=== PATIENT | female | born 1955 | race Asian ===

== ENCOUNTER 2016-11-26 17:26 | Emergency (ER) | payer OTHER ==
[~2016-11-26] VITALS: Wt 42.0 kg
[~2016-11-26 17:26] MED LIST: AZIT250T94 PO; UDPVCC PO
[2016-11-26] MEDS ORDERED: SODIUM CHLORIDE 0.9% 1L BAG IV* STA (17:41)
[2016-11-26] MEDS ORDERED: ONDANSETRON 4 MG INJ IV STA (17:42)
[2016-11-26] MEDS ORDERED: LEVO25TA50 PO (17:51)
[2016-11-26] MEDS ORDERED: ALEN70TA30 PO (17:54)
[2016-11-26 17:56] LABS: ADD SCAN DIFF NO
[2016-11-26 17:59] LABS: BASOPHILS % 0.4 % (0.0-2.0); HEMOGLOBIN 14.5 g/dl (12.0-16.0); LYMPHOCYTES # 0.9 10^3/ul (0.8-2.9); LYMPHOCYTES % 18.1 % (15.0-51.0); MEAN CORPUSCULAR HEMOGLOBIN 30.3 pg (29.0-33.0); MEAN CORPUSCULAR VOLUME 92.1 fl (82.0-101.0); MEAN PLATELET VOLUME 10.4 fl (7.4-10.4); MONOCYTE # 0.2 10^3/ul (0.3-0.9); MONOCYTES % 3.2 % (0.0-11.0); NEUTROPHIL # 3.9 10^3/ul (1.6-7.5); NEUTROPHILS % 77.7 % (39.0-77.0); PLATELET COUNT 228 10^3/UL (140-415); RED BLOOD COUNT 4.78 10^6/ul (4.20-5.40); RED CELL DISTRIBUTION WIDTH 12.6 % (11.5-14.5)
[2016-11-26 18:12] LABS: INR 0.99; PARTIAL THROMBOPLASTIN TIME 26.4 Sec (25.0-35.0); PROTIME 13.1 Sec (12.2-14.2)
[2016-11-26 18:13] LABS: ALBUMIN 4.7 g/dl (3.3-4.9); CHLORIDE 103 mmol/L (97-110); SODIUM 141 mmol/L (135-144)
[2016-11-26 18:14] LABS: POTASSIUM 3.8 mmol/L (3.5-5.1)
[2016-11-26 18:16] LABS: ALBUMIN/GLOBULIN RATIO 1.14; ALKALINE PHOSPHATASE 74 IU/L (42-121); ANION GAP 18 (8-16); ASPARTATE AMINO TRANSFERASE 25 IU/L (15-46); BILIRUBIN,INDIRECT 1.1 mg/dl (0-1.1); BILIRUBIN,TOTAL 1.1 mg/dl (0.2-1.3); BLOOD UREA NITROGEN 12 mg/dl (7-20); CARBON DIOXIDE 24 mmol/L (21-31); CREATININE 0.53 mg/dl (0.44-1.00); TOTAL PROTEIN 8.8 g/dl (6.1-8.1)
[2016-11-26 18:17] LABS: ALANINE AMINOTRANSFERASE 25 IU/L (13-69); CALCIUM 9.1 mg/dl (8.4-10.2); GLUCOSE 166 mg/dl (70-220)
[2016-11-26 18:32] LABS: TROPONIN-I < 0.012 ng/ml (0.00-0.12)
--- NOTE | 2016-11-26 18:45 | RADRPT ---
PROCEDURE: XR Chest. CLINICAL INDICATION: Possible sepsis. TECHNIQUE: Portable AP view of the chest was obtained. COMPARISON: 08/20/2015 FINDINGS: The cardiomediastinal silhouette is within normal limits. The lungs are clear. There is no evidenc e for pleural effusion, pneumothorax or pulmonary vascular congestion. The osseous structures are i ntact with no evidence for acute abnormality. RPTAT:HJJR IMPRESSION: No evidence for acute intrathoracic pathology. Physician Selina Date Time Electronically viewed and signed by Alejandro Hinkle Physician on 11/26/2016 18:44 JR/
[2016-11-26] MEDS ORDERED: SOD CHLORIDE 0.9% 1,000 ML IV STA (18:56)
[2016-11-26 19:39] LABS: ADD UMIC YES; URINE BILIRUBIN (Dip) NEGATIVE (NEGATIVE); URINE BLOOD (Dip) NEGATIVE (NEGATIVE); URINE COLOR LT. YELLOW (YELLOW); URINE GLUCOSE (Dip) NEGATIVE (NEGATIVE); URINE KETONES (Dip) 40 (NEGATIVE); URINE LEUKOCYTE ESTERASE (Dip) 2+ (NEGATIVE); URINE NITRITE (Dip) NEGATIVE (NEGATIVE); URINE TOTAL PROTEIN (Dip) NEGATIVE (NEGATIVE); URINE UROBILINOGEN (Dip) 0.2 E.U./dL (0.1-1.0)
[2016-11-26 19:48] LABS: BACTERIA,URINE FEW; URINE RBCS 0-2 /HPF (0)
[2016-11-26] MEDS ORDERED: CEFTRIAXONE 1 GM/50 ML (PMX) 50 ML IVPB ONE (20:00)
--- NOTE | 2016-11-26 20:09 | RADRPT ---
PROCEDURE: CT Head without. CLINICAL INDICATION: Headache. TECHNIQUE: The study was performed utilizing a multi-slice, multidetector CT scanner. Direct spira l 1 mm axial sections were obtained through the head without the use of intravenous contrast materia l. 1 or more of the following dose reduction techniques were utilized: Automated exposure control, adjustment of the mA and/or kV according to patient's size, iterative reconstruction technique. Co gloria and sagittal reformations were obtained. The images were reviewed on a PACS workstation. RADIATION DOSE: CTDIvol: 45.0 mGyDLP: 720.2 mGy-cm COMPARISON: No prior studies are available for comparison. FINDINGS: There is no intracranial hemorrhage, extra-axial fluid collection, mass lesion, midline shift or hyd rocephalus. The ventricles, sulci and cisterns are within normal limits. The white matter is unrem arkable. The causey-white matter differentiation is preserved. The basal cisterns are patent. There is mild cerebellar tonsillar ectopia on the left with the cerebellar tonsils extending 3 mm below t he level of the foramen magnum. The midline structures are otherwise intact. The orbits, calvarium and extracranial soft tissues are normal in appearance. The visualized paranasal sinuses, mastoid a ir cells and middle ear cavities are normally aerated. IMPRESSION: 1. No acute intracranial abnormality. No intracranial hemorrhage, extra-axial fluid collection, ma ss lesion or hydrocephalous. 2. Mild left cerebellar tonsillar ectopia with the cerebellar tonsils extending 3 mm below the leve l of the foramen magnum. RPTAT: HGAS .Bryn Jordan MD, Date Time Electronically viewed and signed by .Bryn Jordan MD, MD on 11/26/2016 20:08 .S/
[2016-11-26] MEDS ORDERED: MECLIZINE 12.5 MG TAB PO ONE (20:30)
[2016-11-26 21:35] VITALS: TEMP 96.4
--- NOTE | 2016-11-26 21:46 | ERD ---
ER Documentation Chief Complaint Date/Time DATE: 11/26/16 TIME: 21:44 Chief Complaint 3 DAYS OF DIZZINESS AND VOMITING WITH SOME ABD PAIN. SEVERE WEAKNESS HPI This is a 61-year-old female presents to the emergency room for evaluation of a nausea, vomiting and dizziness. She describes her dizziness as a lightheaded sensation worse with rapid change in position. The patient came to the ER for evaluation. She denies any blurred vision associated with this, denies any fevers associated with this. She states her symptoms have been present for 3 days duration. ROS All systems reviewed and are negative except as per history of present illness. Medications Home Meds Reported Medications Alendronate Sodium* (Fosamax*) 70 Mg Tablet, 70 MG PO Q7D, #4 TAB EVERY Tuesday11/26/16 Levothyroxine Sodium* (Levoxyl*) 25 Mcg Tablet, 25 MCG PO BEFORE BREAKFAST, #30 TAB 11/26/16 Discontinued Scripts Phenylephrine Ewm-Yrwwqer-Kttkfwfdclnu* (Promethazine VC Codeine* Syrup) 120 Ml Syrup, 5 ML PO Q6 Y for COUGH for 7 Days, ML Prov:MALLORY ROACH PA-C 08/20/15 Azithromycin* (Zithromax*) 250 Mg Tablet, 250 MG PO .ZPACK DIRECTED, #6 TAB TAKE 500 MG (2 TABS) THE FIRST DAY THEN 250 MG (1 TAB) DAYS 2-5 Prov:MALLORY ROACH PA-C 08/20/15 Allergies Allergies: Coded Allergies: No Known Allergy (Unverified , 11/26/16) PMhx/Soc History of Surgery: Yes (nasal papilloma surgery 2011) Anesthesia Reaction: No Hx Neurological Disorder: No Hx Respiratory Disorders: No Hx Cardiac Disorders: No Hx Psychiatric Problems: No Hx Miscellaneous Medical Probl: Yes (thyroid problem) Hx Alcohol Use: No Hx Substance Use: No Hx Tobacco Use: No Smoking Status: Never smoker Physical Exam Vitals Vital Signs Date Time Temp Pulse Resp B/P Pulse Ox O2 Delivery O2 Flow Rate FiO2 11/26/16 21:35 96.4 11/26/16 20:46 106 21 138/78 100 Room Air 11/26/16 20:00 97 22 138/74 99 Room Air 11/26/16 19:00 84 18 135/70 99 Room Air 11/26/16 17:32 97.2 78 21 147/60 100 Physical Exam INITIAL VITAL SIGNS: Reviewed by me GENERAL: The patient is well developed and appropriate for usual state of health in no apparent distress HEENT: Dry mucous membranes, pupils equal, round, and reactive to light. EOMI. There is no scleral icterus. NECK: C-spine is soft and supple, there is no meningismus. There is no cervical lymphadenopathy. LUNGS: Clear to auscultation bilaterally. There are no rales, wheezes or rhonchi. HEART: Regular rate and rhythm, no murmurs, clicks, rubs or gallops. ABDOMEN: Soft, non-tender, non-distended. There are bowel sounds in all four quadrants. No rebound or guarding. EXTREMITIES: There is no peripheral cyanosis or edema. No focal swelling or erythema. NEUROLOGICAL: The patient moves all four extremities with 5/5 strength. Cranial nerves II - XII are intact. Normal gait. Alert and oriented SKIN: There is no apparent rash or petechiae. HEME/LYMPHATIC: There is no evidence of excessive bruising or lymphedema. PSYCHIATRIC: The patient does not appear anxious or depressed. Result Diagram: 11/26/16 1735 11/26/16 1735 Results 24 hrs Laboratory Tests Test 11/26/16 17:35 11/26/16 19:19 11/26/16 19:50 White Blood Count 5.010^3/ul Red Blood Count 4.7810^6/ul Hemoglobin 14.5g/dl Hematocrit 44.0% Mean Corpuscular Volume 92.1fl Mean Corpuscular Hemoglobin 30.3pg Mean Corpuscular Hemoglobin Concent 33.0g/dl Red Cell Distribution Width 12.6% Platelet Count 53684^3/UL Mean Platelet Volume 10.4fl Neutrophils % 77.7% Lymphocytes % 18.1% Monocytes % 3.2% Eosinophils % 0.0% Basophils % 0.4% Nucleated Red Blood Cells % 0.0/100WBC Neutrophils # 3.910^3/ul Lymphocytes # 0.910^3/ul Monocytes # 0.210^3/ul Eosinophils # 0.010^3/ul Basophils # 0.010^3/ul Nucleated Red Blood Cells # 0.010^3/ul Prothrombin Time 13.1Sec Prothrombin Time Ratio 1.0 INR International Normalized Ratio 0.99 Activated Partial Thromboplast Time 26.4Sec Sodium Level 141mmol/L Potassium Level 3.8mmol/L Chloride Level 103mmol/L Carbon Dioxide Level 24mmol/L Anion Gap 18 Blood Urea Nitrogen 12mg/dl Creatinine 0.53mg/dl Glucose Level 166mg/dl Lactic Acid Level 2.4mmol/L 2.7mmol/L Calcium Level 9.1mg/dl Total Bilirubin 1.1mg/dl Direct Bilirubin 0.00mg/dl Indirect Bilirubin 1.1mg/dl Aspartate Amino Transf (AST/SGOT) 25IU/L Alanine Aminotransferase (ALT/SGPT) 25IU/L Alkaline Phosphatase 74IU/L Troponin I < 0.012ng/ml Total Protein 8.8g/dl Albumin 4.7g/dl Globulin 4.10g/dl Albumin/Globulin Ratio 1.14 Urine Color LT. YELLOW Urine Clarity CLEAR Urine pH 7.0 Urine Specific [place] 1.020 Urine Ketones 40 Urine Nitrite NEGATIVE Urine Bilirubin NEGATIVE Urine Urobilinogen 0.2 E.U./dL Urine Leukocyte Esterase 2+ Urine Microscopic RBC 0-2/HPF Urine Microscopic WBC 25-50/HPF Urine Epithelial Cells FEW Urine Bacteria FEW Urine Hemoglobin NEGATIVE Urine Glucose NEGATIVE% Urine Total Protein NEGATIVE Current Medications Medications (Trade) Dose Ordered Sig/Yolanda Route PRN Reason Start Time Stop Time Status Last Admin Dose Admin Sodium Chloride (NS) 1,300 ml BOLUS OVER 2 HOURS STAT IV* 11/26/16 17:41 11/26/16 17:43 DC 11/26/16 17:56 Ondansetron HCl 4 mg 4 mg ONCE STAT IV 11/26/16 17:42 11/26/16 17:43 DC 11/26/16 17:56 Sodium Chloride 1,000 ml @ 1,000 mls/hr Q1H STAT IV 11/26/16 18:56 11/26/16 19:55 DC 11/26/16 19:33 Ceftriaxone Sodium (Rocephin) 50 ml @ 100 mls/hr ONCE ONCE IVPB 11/26/16 20:00 11/26/16 20:29 DC 11/26/16 20:09 Meclizine HCl (Antivert) 25 mg ONCE ONCE PO 11/26/16 20:30 11/26/16 20:31 DC 11/26/16 20:45 Dexamethasone (Decadron) 10 mg ONCE ONCE IV 11/26/16 22:00 11/26/16 22:01 DC 11/26/16 21:56 Procedures/MDM CT head without: 1. No acute intracranial abnormality. No intracranial hemorrhage, extra-axial fluid collection, mass lesion or hydrocephalous. 2. Mild left cerebellar tonsillar ectopia with the cerebellar tonsils extending 3 mm below the level of the foramen magnum. Chest X-ray 1V Interpreted by me: Soft Tissue: No acute abnormalities Bones: No acute abnormalities Mediastinum/Cardiac Silhouette/Lungs: [No acute abnormalities] This 61-year-old female presents to the emergency room for evaluation of generalized weakness, headache, dizziness, and vomiting. When I evaluated her the patient did have dry mucous membranes. She appeared to be weak and needed help with ambulation. I did obtain lab work on this patient including a urinalysis which did show a urinary tract infection. This patient does have a lactic acidosis. Did give this patient fluids, she stated she was feeling better however had a headache. CT of the head was obtained in the CT does show tonsillar ectopia with cerebellar tonsils extending 3 mm below the level of the foramen magnum. I did contact her neurosurgeon transportation modeler, Dr. Garces who states this can be related to Chiari syndrome. This patient has continued headache and vomiting and given the patient's UTI with lactic acidosis she will be placed for admission at this time on her [facility] floor. She was given greater than 30 cc/kg of IV normal saline. No blood cultures were obtained as the patient does not have a leukocytosis at this time. She will be admitted under the care of panel physicianJudy Departure Diagnosis: Primary Impression: Acute cystitis Additional Impressions: Dizziness Nausea and vomiting Condition: ARMAND Garcia DO Nov 26, 2016 21:46
[2016-11-26] MEDS ORDERED: DEXAMETHASONE 10 MG/ML 1 ML INJ IV ONE (22:00)
[2016-11-26] MEDS ORDERED: SOD CHLORIDE 0.9% 1,000 ML IV SCH (22:26)
[2016-11-26] MEDS ORDERED: ONDANSETRON 4 MG INJ IV PRN (22:30)
[2016-11-26] MEDS ORDERED: ACETAMINOPHEN 325 MG TAB PO PRN (22:30)
[2016-11-26] MEDS ORDERED: MECL-77 PO (23:31)
[2016-11-26] MEDS ORDERED: CIPR500T4 PO (23:31)
[2016-11-27 00:10] VITALS: BP 144/89; PULSE 90; RESP 18
== END 2016-11-27 00:21 | disposition home or self-care (01) ==
LOC: E/R 17:26
DX: N30.00 Acute cystitis without hematuria (principal); R11.2 Nausea with vomiting, unspecified; R10.9 Unspecified abdominal pain
CPT/HCPCS: 36415; 70450; 71010; 80053; 81001; 83605; 84484; 85025; 85610; 85730; 87040; 87086; 93005; 96365; 96375; J0696; J1100; J2405; J7030; Z7502; Z7610; 81003

== ENCOUNTER 2017-01-23 10:47 | Observation (INO) | payer OTHER ==
[~2017-01-23] VITALS: Ht 154.9 cm; Wt 46.0 kg
[~2017-01-23 10:47] MED LIST changes: +ALEN70TA30 PO; -AZIT250T94 PO; +CIPR500T4 PO; +LEVO25TA50 PO; +MECL-77 PO; -UDPVCC PO
[2017-01-23] MEDS ORDERED: SOD CHLORIDE 0.9% 1,000 ML IV STA (11:08)
[2017-01-23] MEDS ORDERED: ONDANSETRON 4 MG INJ IV STA (11:08)
[2017-01-23] MEDS ORDERED: MECLIZINE 12.5 MG TAB PO ONE ×2 (11:30→13:30)
--- NOTE | 2017-01-23 12:12 | RADRPT ---
PROCEDURE: CT Brain without contrast. CLINICAL INDICATION: Headache. TECHNIQUE: A CT of the brain was performed on a LightSpeed VCT [employer] CT scanner util[employer] Jobi ng a low dose technique with axial imaging from the skull base through the vertex without IV contras t. Multiplanar reformatted images were made. Images were reviewed on a PACS workstation. The CTDI vol is 45 mGy and the DLP is 720 mGycm. One or more of the following dose reduction techniques were used: - Automated exposure control. - Adjustment of the mA and/or kV according to patient size. Use of iterative reconstruction technique. COMPARISON: CT scan of the brain November 26, 2016. FINDINGS: There are vascular calcifications in the distal right vertebral artery. There are vascular calcifica tions in the cavernous and supracavernous portions of the internal carotid arteries. The fourth vent ricle is normal in size. The third and lateral ventricles are normal in size and configuration. The brain parenchyma is normal. The visible portions of the globes and extraocular muscles are normal. The paranasal sinuses are cl ear. The mastoid air cells and internal auditory canals are normal. The bony calvarium is intact. No intracranial mass or hemorrhage is identified. IMPRESSION: 1. Negative CT scan of the brain without contrast. 2. There are vascular calcifications in the cavernous and supracavernous portions of the internal ca rotid arteries and distal right vertebral artery.. RPTAT:AAJJ Physician Reed Date Time Electronically viewed and signed by Physician Reed on 01/23/2017 12:11 SHALONDA/
[2017-01-23] MEDS ORDERED: DIAZEPAM 5 MG/ML SYG IV ONE (13:30)
[2017-01-23] MEDS ORDERED: ASPIRIN 81 MG TAB PO ONE (14:00)
[2017-01-23 14:32] LABS: ADD SCAN DIFF NO
[2017-01-23 14:33] LABS: BASOPHILS % 0.7 % (0.0-2.0); HEMATOCRIT 42.9 % (37.0-47.0); HEMOGLOBIN 13.9 g/dl (12.0-16.0); LYMPHOCYTES # 1.3 10^3/ul (0.8-2.9); LYMPHOCYTES % 23.4 % (15.0-51.0); MEAN CORPUSCULAR HEMOGLOBIN 29.8 pg (29.0-33.0); MEAN CORPUSCULAR HGB CONC 32.4 g/dl (32.0-37.0); MEAN CORPUSCULAR VOLUME 91.9 fl (82.0-101.0); MEAN PLATELET VOLUME 10.9 fl (7.4-10.4); MONOCYTE # 0.3 10^3/ul (0.3-0.9); MONOCYTES % 4.6 % (0.0-11.0); NEUTROPHILS % 70.9 % (39.0-77.0); PLATELET COUNT 269 10^3/UL (140-415); RED BLOOD COUNT 4.67 10^6/ul (4.20-5.40); RED CELL DISTRIBUTION WIDTH 12.4 % (11.5-14.5); WHITE BLOOD COUNT 5.6 10^3/ul (4.8-10.8)
--- NOTE | 2017-01-23 14:33 | ERA ---
ER Documentation Chief Complaint Date/Time DATE: 01/23/17 TIME: 14:29 Chief Complaint Vertigo and vomiting HPI This is a 61-year-old female who says she has had a sudden onset vertigo this morning. She says she has had a few rounds of vomiting. She says that the room is spinning severely and suddenly this morning. The patient states she had vertigo a month ago and was given medication treated at an outside ER. She said she tried to take this medication but it did not work. She says she hit her head 10 days ago but did not have any symptoms until now. Patient states if she turns her head or tries to walk around she gets severe vertigo. She has a dull diffuse mild headache as well. No focal neurological complaints such as numbness weakness speech change or visual change. No blood or bile in her vomit. No diarrhea no abdominal pain chest pain. She says that she remains still with a spinning sensation is much better. ROS All systems reviewed and are negative except as per history of present illness. Medications Home Meds Reported Medications Alendronate Sodium* (Fosamax*) 70 Mg Tablet, 70 MG PO Q7D, #4 TAB EVERY Tuesday11/26/16 Levothyroxine Sodium* (Levoxyl*) 25 Mcg Tablet, 25 MCG PO BEFORE BREAKFAST, #30 TAB 11/26/16 Discontinued Scripts Meclizine Hcl* (Meclizine Hcl*) 25 Mg Tablet, 25 MG PO Q8H Y for DIZZINESS, #30 TAB Prov:ARMAND JUNIOR DO 11/26/16 Ciprofloxacin Hcl* (Ciprofloxacin Hcl*) 500 Mg Tablet, 500 MG PO BID, #14 TAB Prov:ARMAND JUNIOR DO 11/26/16 Allergies Allergies: Coded Allergies: No Known Allergy (Unverified , 01/23/17) PMhx/Soc History of Surgery: Yes (nasal papilloma surgery 2011) Anesthesia Reaction: No Hx Neurological Disorder: Yes (HYPOTHYROID) Hx Respiratory Disorders: No Hx Cardiac Disorders: No Hx Psychiatric Problems: No Hx Miscellaneous Medical Probl: Yes Hx Alcohol Use: No Hx Substance Use: No Hx Tobacco Use: No Smoking Status: Never smoker FmHx Family History: No coronary disease Physical Exam Vitals Vital Signs Date Time Temp Pulse Resp B/P Pulse Ox O2 Delivery O2 Flow Rate FiO2 01/23/17 11:17 74 16 135/87 98 Room Air 01/23/17 10:51 97.0 83 20 143/73 98 Physical Exam Const: Well-developed, well-nourished, clearly uncomfortable due to vertigo Head: Atraumatic, normocephalic Eyes: Normal Conjunctiva, PERRLA, EOMI, normal sclera, no nystagmus ENT: Normal External Ears, Nose and Mouth, moist mucus membranes. Neck: Full range of motion. No meningismus, no lymphadenopathy. Resp: Clear to auscultation bilaterally, no wheezing, rhonchi, rales Cardio: Regular rate and rhythm, no murmurs, S1 S2 present Abd: Soft, non tender x 4, non distended. Normal bowel sounds, no guarding or rebound, no pulsitile abdominal masses or bruits Skin: No petechiae or rashes, no ecchymosis , no maculopapular rash Back: No midline or flank tenderness Ext: No cyanosis, or edema, FROM x 4, normal inspection, neurovascularly intact x 4 Neur: Awake and alert, STR 5/5 x 4, sensation intact x 4, no focal findings, cerebellum intact, any movement of the bed was due to severe vertigo Psych: Normal Mood and Affect Results 24 hrs Current Medications Medications (Trade) Dose Ordered Sig/Yolanda Route PRN Reason Start Time Stop Time Status Last Admin Dose Admin Sodium Chloride (NS) 1,000 ml @ 1,000 mls/hr Q1H STAT IV 01/23/17 11:08 01/23/17 12:07 DC 01/23/17 11:29 Ondansetron HCl (Zofran Inj) 4 mg ONCE STAT IV 01/23/17 11:08 01/23/17 11:10 DC 01/23/17 11:29 Meclizine HCl (Antivert) 25 mg ONCE ONCE PO 01/23/17 11:30 01/23/17 11:31 DC 01/23/17 11:30 Meclizine HCl (Antivert) 25 mg ONCE ONCE PO 01/23/17 13:30 01/23/17 13:31 DC 01/23/17 13:57 Diazepam (Valium) 5 mg ONCE ONCE IV 01/23/17 13:30 01/23/17 13:31 DC 01/23/17 13:57 Aspirin (Aspirin) 162 mg ONCE ONCE PO 01/23/17 14:00 01/23/17 14:01 DC 01/23/17 14:18 Procedures/MDM PROCEDURE: CT Brain without contrast. CLINICAL INDICATION: Headache. TECHNIQUE: A CT of the brain was performed on a LightSpeed [employer]CT [employer] CT scanner utilizing a low dose technique with axial imaging from the skull base through the vertex without IV contrast. Multiplanar reformatted images were made. Images were reviewed on a PACS workstation. The CTDIvol is 45 mGy and the DLP is 720 mGycm. One or more of the following dose reduction techniques were used: - Automated exposure control. - Adjustment of the mA and/or kV according to patient size. Use of iterative reconstruction technique. COMPARISON: CT scan of the brain November 26, 2016. FINDINGS: There are vascular calcifications in the distal right vertebral artery. There are vascular calcifications in the cavernous and supracavernous portions of the internal carotid arteries. The fourth ventricle is normal in size. The third and lateral ventricles are normal in size and configuration. The brain parenchyma is normal. The visible portions of the globes and extraocular muscles are normal. The paranasal sinuses are clear. The mastoid air cells and internal auditory canals are normal. The bony calvarium is intact. No intracranial mass or hemorrhage is identified. IMPRESSION: 1. Negative CT scan of the brain without contrast. 2. There are vascular calcifications in the cavernous and supracavernous portions of the internal carotid arteries and distal right vertebral artery.. RPTAT:AAJJ Physician Reed Date Time Electronically viewed and signed by Physician Reed on 01/23/2017 12:11 SHALONDA/ CC: AMARIS CARPENTER DO Patient was given Antivert 25 mg p.o. 2 as well as Valium 5 mg IV The vertigo is better. We will admit the patient due to intractable vertigo. She does have some calcifications in her carotid and vertebral arteries which is somewhat concerning that a plaque could have come off causing her symptoms. I did treat her with aspirin and IV fluids. We will admit for symptomatic control and likely get an MRI Departure Diagnosis: Primary Impression: Vertigo Condition: Stable AMARIS CARPENTER DO Jan 23, 2017 14:33
[2017-01-23 14:50] LABS: INR 0.99; PROTIME 13.1 Sec (12.2-14.2)
[2017-01-23 14:51] LABS: ALBUMIN/GLOBULIN RATIO 1.38; BILIRUBIN,INDIRECT 1.4 mg/dl (0-1.1); BILIRUBIN,TOTAL 1.4 mg/dl (0.2-1.3); CALCIUM 9.3 mg/dl (8.4-10.2); CREATININE 0.57 mg/dl (0.44-1.00); PARTIAL THROMBOPLASTIN TIME 27.5 Sec (25.0-35.0); POTASSIUM 3.3 mmol/L (3.5-5.1); TOTAL PROTEIN 8.6 g/dl (6.1-8.1)
[2017-01-23] MEDS ORDERED: SOD CHLORIDE 0.9% 1,000 ML IV SCH (14:55)
[2017-01-23] MEDS ORDERED: ONDANSETRON 4 MG INJ IV PRN ×2 (15:00→16:00)
[2017-01-23] MEDS ORDERED: ACETAMINOPHEN 325 MG TAB PO PRN ×2 (15:00→16:00)
[2017-01-23] MEDS ORDERED: HYDROCODONE/APAP (5/325) TAB PO PRN (16:00)
[2017-01-23] MEDS ORDERED: NACL 0.9% 3 ML SYG IV SCH (16:00)
[2017-01-23] MEDS ORDERED: morphine 2 MG INJ IV PRN (16:00)
[2017-01-23 17:07] VITALS: PULSE 69
[2017-01-23] MEDS: SOD CHLORIDE 0.9% 1,000 ML IV SCH (17:42)
[2017-01-23 17:55] VITALS: Ht 154.9 cm; Wt 46.0 kg
[2017-01-23 20:07] VITALS: PULSE 68
[2017-01-23 20:18] VITALS: BP 118/58; RESP 20
[2017-01-23] MEDS ORDERED: MECLIZINE 25 MG TAB PO PRN (22:30)
--- NOTE | 2017-01-23 23:38 | DS ---
DATE OF ADMISSION: 01/23/2017 DATE OF DISCHARGE: 01/23/2017 PRIMARY CARE PHYSICIAN: Unknown. PERIOPERATIVE EDUCATOR: Neurology. CHIEF COMPLAINT: Dizziness. HISTORY OF PRESENT ILLNESS: This is a 61-year-old female who presents from home with nausea and diz ziness since this morning. No known aggravating, no known relieving factors. Patient had a similar issue 1 month ago. No loss of vision or focal deficits. No witnessed tongue bite, incontinence. T here is some light sensitivity, subjective fever. I believe she is still maintaining her normal act ivities during these processes. Patient has some ear pain, vertigo-like symptoms, but no loss of he aring. No neck stiffness. Again, no known aggravating factors. Her previous episode resolved with an evaluation in the emergency room, possibly with meclizine. Her vomiting has not been associated with blood. She does have a history of travel and visited [facility] a few weeks ago. She denies any mosquito bites. She did hit her head walking [place] [facility], but no loss of consciousness. PAST MEDICAL HISTORY: Hypothyroidism. The patient's history of blood pressure runs low normal. PAST SURGICAL HISTORY: None. SOCIAL HISTORY: No tobacco or alcohol. 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 FAMILY HISTORY: Mother and father had stroke, coronary artery disease, but not at an early age. REVIEW OF SYSTEMS: NEUROLOGIC: Mild headache. No loss of speech or vision, possible photosensitivity. CARDIOVASCULAR: No chest pain, no dyspnea, no edema. LUNGS: No cough, no wheezing. CONSTITUTIONAL: Subjective fever. ABDOMEN: No pain. Positive nausea, vomiting. No diarrhea. GENITOURINARY: No abdominal pain. No fever. No hematuria. MUSCULOSKELETAL: No gait dysfunction. No rashes, itching, no edema . CONSTITUTIONAL: No chills, no weight loss. Subjective fever. HEMATOLOGIC: No hematochezia, melena, hematuria. PSYCHIATRY: The patient has stable mood. anxiety, depression. ENDOCRINE: No previous diabetes or dyslipidemia. Positive hypothyroidism. PHYSICAL EXAMINATION: HEENT: Extraocular movements are intact. No pallor, no icterus, no adenopathy, no carotid bruits, n o JVD, no droop. CARDIOVASCULAR: S1, S2 regular. No murmur, rub, gallops appreciated. LUNGS: Clear to auscultation bilaterally. ABDOMEN: Bowel sounds present, nontender, nondistended. No rigidity, no rebound or guarding. EXTREMITIES: Without any edema. NEUROLOGICAL: Cranial nerves II through XII grossly intact. Motor 5/5 x4. Sensory symmetrical. R eflexes symmetrical. Babinski's none. Cerebellar function tests appear to be intact. LABORATORY DATA: CBC unremarkable. INR 0.9. CMP remarkable for sodium 145, potassium 3.3, chlorid e 107, bicarb 27, BUN and creatinine 17 and 0.7, glucose 117, bilirubin 1.4, AST and ALT of 22 and 2 5, alk phos of 82, protein of 8, albumin of 5. CAT scan of brain: No acute process. There are vasc ular calcifications in the carotids and distal vertebral body. ASSESSMENT: 1. Dizziness associated with vertigo, photophobia, subjective fever, ear pain. Possible acute lab yrinthitis, positional ? benign positional vertigo. Rule out carotid symptomatic disease. 2. Hypothyroidism. PLAN: Admit to telemetry. Consult neurology or ENT in the morning in order to evaluate carotid dise ase and stroke risk factors. Dictated By: STEFANI GARCES/JUANITA Conf#: [id number] DID#: [id number]
[2017-01-24] VITALS (16 sets, daily range): BP systolic 105–147; BP diastolic 52–87; PULSE 61–73; RESP 16–20
[2017-01-24] MEDS: SOD CHLORIDE 0.9% 1,000 ML IV SCH ×3 (03:28→21:42)
[2017-01-24] MEDS: LEVOTHYROXINE 25 MCG TAB PO SCH (06:09)
[2017-01-24 07:34] LABS: ADD SCAN DIFF NO
[2017-01-24 07:41] LABS: BASOPHILS % 0.5 % (0.0-2.0); EOSINOPHILS % 0.2 % (0.0-7.0); HEMATOCRIT 35.6 % (37.0-47.0); HEMOGLOBIN 11.4 g/dl (12.0-16.0); LYMPHOCYTES # 1.5 10^3/ul (0.8-2.9); LYMPHOCYTES % 25.4 % (15.0-51.0); MEAN CORPUSCULAR HEMOGLOBIN 29.8 pg (29.0-33.0); MEAN CORPUSCULAR VOLUME 93.2 fl (82.0-101.0); MEAN PLATELET VOLUME 10.7 fl (7.4-10.4); MONOCYTE # 0.5 10^3/ul (0.3-0.9); MONOCYTES % 7.5 % (0.0-11.0); NEUTROPHILS % 66.2 % (39.0-77.0); PLATELET COUNT 215 10^3/UL (140-415); RED BLOOD COUNT 3.82 10^6/ul (4.20-5.40); RED CELL DISTRIBUTION WIDTH 12.4 % (11.5-14.5)
[2017-01-24 08:05] LABS: ALBUMIN 3.7 g/dl (3.3-4.9); ALBUMIN/GLOBULIN RATIO 1.32; BILIRUBIN,INDIRECT 1.8 mg/dl (0-1.1); BILIRUBIN,TOTAL 1.8 mg/dl (0.2-1.3); CALCIUM 8.2 mg/dl (8.4-10.2); CHOL/HDL RATIO 3.8 RATIO; CREATININE 0.45 mg/dl (0.44-1.00); MAGNESIUM 1.9 mg/dl (1.7-2.5); PHOSPHORUS 2.1 mg/dl (2.5-4.9); POTASSIUM 3.7 mmol/L (3.5-5.1); TOTAL PROTEIN 6.5 g/dl (6.1-8.1)
[2017-01-24 08:29] LABS: THYROID STIMULATING HORMONE 0.772 MIU/L (0.465-4.680)
[2017-01-24] MEDS: ENOXAPARIN 40 MG/0.4 ML SYG SC SCH (09:00)
--- NOTE | 2017-01-24 09:01 | RADRPT ---
PROCEDURE: US Carotids. CLINICAL INDICATION: bruit , vertigo TECHNIQUE: Multiple sonographic of the carotid bifurcation region and vertebral arteries were obta ined utilizing causey scale, duplex and color-flow imaging. The images were reviewed on a PACS worksta tion. COMPARISON: No prior studies are available for comparison. FINDINGS: Evaluation of the right carotid bifurcation region reveals no significant calcific atherosclerotic d isease. Evaluation of the left carotid bifurcation region reveals no significant calcific atherosclerotic di sease. There is antegrade flow within the vertebral arteries bilaterally. RIGHT CAROTID MEASUREMENTS: Common Carotid Cbbegw37.5 (cm/sec) Internal Carotid Artery - jtuaxyqy19.2 (cm/sec) Internal Carotid Artery - mid61.4 (cm/sec) Internal Carotid Artery - txhqyn30.5 (cm/sec) Internal Carotid/Common Carotid1.05 LEFT CAROTID MEASUREMENTS: Common Carotid Zlhbsy71.2 (cm/sec) Internal Carotid Artery - wkrnvoxs64.8 (cm/sec) Internal Carotid Artery - mid55.8 (cm/sec) Internal Carotid Artery - ekwvzt77.4 (cm/sec) Internal Carotid/Common Carotid0.81 RPTAT: AA IMPRESSION: No evidence for hemodynamically significant stenosis in the bilateral internal carotid arteries - va lidated velocity measurements with angiographic measurements, velocity criteria are extrapolated fro m diameter data as defined by the Society of Radiologists in Ultrasound Consensus Conference Radiolo gy 2003; 229;340-346. This study does indirectly reference the measurement of the distal ICA diamet er as the denominator for stenosis measurement. Normal antegrade flow in the vertebral arteries bilaterally. .Thiago Martínez MD, MD Date Time Electronically viewed and signed by .Thiago Martínez MD, MD on 01/24/2017 09:01 .S/
--- NOTE | 2017-01-24 12:13 | CONS ---
Date/Time of Note Date/Time of Note DATE: 01/24/17 TIME: 12:10 Assessment/Plan Assessment/Plan Chief Complaint/Hosp Course 61 yo female admitted with nausea vomiting and vertigo. Recommendations: CTH and Duplex negative will obtain MRI Brain without contrast Standing Meclizine 25 mg q8h continue IVF hydration PT evaluation for gait balance training and exercises Problems: Consultation Date/Type/Reason Admit Date/Time Jan 23, 2017 at 14:56 Date of Consultation: Jan 24, 2017 Type of Consultation: Neurology Reason for Consultation vertigo, nausea vomiting Referring Provider: ROBERTA DARLING DIE CUTTER OPERATOR Hx of Present Illness 61 year old right handed female with no reported history presenting with complaints of worsening dizziness associated with nausea and vomiting. She denies any recent illness, admitted to similar event over 1 month ago. She denies any headaches, no visual symptoms, no speech issues, no focal weakness or difficulty with ambulation. Since admission symptoms have been improving. vertigo vomiting Social History Smoking Status: Never smoker Exam/Review of Systems Vital Signs Vitals Vital Signs Date Time Temp Pulse Resp B/P Pulse Ox O2 Delivery O2 Flow Rate FiO2 01/24/17 12:06 99.0 73 18 108/59 98 01/23/17 16:25 Room Air Intake and Output 01/23/17 01/23/17 01/24/17 15:00 23:00 07:00 Intake Total 440 ml 1270 ml Balance 440 ml 1270 ml Exam Constitutional: alert, oriented, well developed Psych: no complaints Neurological: ASSISTANCE REPRESENTATIVE II-XII intact, DTR's symmetric, nl mental status, nl speech, nl strength Results Result Diagram: 01/24/17 0630 01/24/17 0630 Results 24 hrs Laboratory Tests Test 01/23/17 14:00 01/24/17 06:30 White Blood Count 5.6 6.0 Red Blood Count 4.67 3.82 L Hemoglobin 13.9 11.4 L Hematocrit 42.9 35.6 L Mean Corpuscular Volume 91.9 93.2 Mean Corpuscular Hemoglobin 29.8 29.8 Mean Corpuscular Hemoglobin Concent 32.4 32.0 Red Cell Distribution Width 12.4 12.4 Platelet Count 269 215 # Mean Platelet Volume 10.9 H 10.7 H Neutrophils % 70.9 66.2 Lymphocytes % 23.4 25.4 Monocytes % 4.6 7.5 Eosinophils % 0.0 0.2 Basophils % 0.7 0.5 Nucleated Red Blood Cells % 0.0 0.0 Neutrophils # 4.0 4.0 Lymphocytes # 1.3 1.5 Monocytes # 0.3 0.5 Eosinophils # 0.0 0.0 Basophils # 0.0 0.0 Nucleated Red Blood Cells # 0.0 0.0 Prothrombin Time 13.1 Prothrombin Time Ratio 1.0 INR International Normalized Ratio 0.99 Activated Partial Thromboplast Time 27.5 Sodium Level 145 H 142 Potassium Level 3.3 L 3.7 Chloride Level 107 111 H Carbon Dioxide Level 24 23 Anion Gap 17 H 12 Blood Urea Nitrogen 17 12 Creatinine 0.57 0.45 Glucose Level 117 62 #L Calcium Level 9.3 8.2 L Total Bilirubin 1.4 H 1.8 H Direct Bilirubin 0.00 0.00 Indirect Bilirubin 1.4 H 1.8 H Aspartate Amino Transf (AST/SGOT) 22 22 Alanine Aminotransferase (ALT/SGPT) 25 31 Alkaline Phosphatase 82 54 Total Protein 8.6 H 6.5 # Albumin 5.0 H 3.7 # Globulin 3.60 H 2.80 Albumin/Globulin Ratio 1.38 1.32 Hemoglobin A1c 5.4 Phosphorus Level 2.1 L Magnesium Level 1.9 Triglycerides Level 69 Cholesterol Level 179 LDL Cholesterol, Calculated 119 HDL Cholesterol 46 Cholesterol/HDL Ratio 3.8 Vitamin B12 Level 654 Thyroid Stimulating Hormone (TSH) 0.772 Medications Medications Current Medications Sodium Chloride (NS) 1,000 ml @ 100 mls/hr Q10H IV Last administered on 12:03; Admin Dose 100 MLS/HR; Start 01/23/17 at 15:42 Ondansetron HCl (Zofran Inj) 4 mg Q6H PRN IV NAUSEA AND/OR VOMITING Last administered on 01/23/17 18:11; Admin Dose 4 MG; Start 01/23/17 at 16:00 Acetaminophen (Tylenol Tab) 650 mg Q6H PRN PO PAIN LEVEL 1-3 OR FEVER; Start at 16:00 Acetaminophen/ Hydrocodone Bitart ([place] (5/325)) 1 tab Q6H PRN PO MODERATE PAIN LEVEL 4-6; Start 01/23/17 at 16:00 Morphine Sulfate (morphine) 2 mg Q4H PRN IV SEVERE PAIN LEVEL 7-10 Last administered on 01/23/17 16:10; Admin Dose 2 MG; Start 01/23/17 at 16:00 Enoxaparin Sodium (Lovenox) 40 mg DAILY SC Last administered on 01/24/17 09:00 ; Admin Dose 40 MG; Start 01/24/17 at 09:00 Meclizine HCl (Antivert) 25 mg TID PRN PO VOMITTING Last administered on 00:29; Admin Dose 25 MG; Start 01/23/17 at 22:30 ARLIN MARTINEZ MD Jan 24, 2017 12:13
--- NOTE | 2017-01-24 12:37 | PN ---
DATE: 01/24/2017 01/24/2007 TIME OF EVALUATION: 11:30 a.m. SUBJECTIVE DATA: Complains of dizziness. Denies any headache. Denies any nausea or vomiting. OBJECTIVE DATA: VITAL SIGNS: Temperature 97.2, pulse is 70, respiratory rate 18, blood pressure 105/58, oxygen saturation 98% on room air. GENERAL: Thin female lying in bed in no apparent distress. HEENT: Head normocephalic and atraumatic. Eyes: Anicteric sclerae. Conjunctivae clear. ENT: Nasal septum is midline. Oral mucosa is dry. NECK: Supple. No JVD noticed. RESPIRATORY: Bilaterally clear to auscultation. No adventitious breath sounds heard. No use of accessory muscles of respiration. CARDIAC: Regular rate and rhythm. S1, S2 heard. ABDOMEN: Soft, nontender and nondistended. Bowel sounds positive in all 4 quadrants. GENITOURINARY: Deferred. EXTREMITIES: No cyanosis, no clubbing, no edema. Peripheral pulses palpable. NEUROLOGIC: The patient is awake, alert and oriented. Cranial nerves are grossly intact. LABORATORY AND DIAGNOSTIC DATA: WBC 6.0, hemoglobin 11.4, hematocrit 35.6, platelet count 215. Sodium 142, potassium 3.7, chloride 111, carbon dioxide 23 , anion gap 12, BUN 12, creatinine 0.45, glucose 62, calcium 8.2, phosphorus 2.1 , magnesium 1.9, total bilirubin 1.8, indirect bilirubin 1.8, AST 22, ALT 31, alkaline phosphatase 54. ASSESSMENT AND PLAN: 1. Autonomic instability. Etiology unclear, most probably benign paroxysmal positional vertigo. Brain CT scan negative for any acute changes. Carotid Doppler study negative. The patient to be evaluated by neurology. 2. Hypothyroidism. Continue Synthroid. 3. Fluid, electrolytes and nutrition. Regular diet as tolerated. 4. DVT prophylaxis with subcutaneous Lovenox. 5. Gastrointestinal prophylaxis, not indicated. PLAN: 1. Continue telemetry monitoring. 2. Await neurology evaluation. 3. Physical therapy evaluation. Case discussed with Dr. Payne. ROBERTA PAYNE MD, AM/JUANITA Conf#: [id number] DID#: [id number] MTDD
[2017-01-24] MEDS: MECLIZINE 25 MG TAB PO SCH ×2 (13:17→20:40)
--- NOTE | 2017-01-24 14:04 | RADRPT ---
Vent Rate: 73 bpm RR Interval: 0 msec IN Interval: 160 msec QRS Duration: 80 msec QT Interval: 394 msec QTC Interval: 434 msec P-R-T [place]: 65 - 86 - 66 degrees Normal sinus rhythm Normal ECG Electronically Signed By: Luis Medina [id number]
[2017-01-25] VITALS (9 sets, daily range): BP systolic 129–133; BP diastolic 63–73; PULSE 60–73; RESP 16–18
--- NOTE | 2017-01-25 00:37 | RADRPT ---
PROCEDURE: MR Brain without contrast. CLINICAL INDICATION: Vertigo. CVA. TECHNIQUE: An MRI of the brain was performed on a 1.5 marc scanner utilizing the following sequen nnamdi: Sagittal T1 weighted, axial T2 weighted, axial FLAIR, coronal GRE, and axial diffusion weighted with ADC mapping. COMPARISON: None FINDINGS: No evidence of restricted diffusion to suggest acute or early subacute ischemic infarction. There i s no evidence of intracranial hemorrhage, mass effect, or midline shift. No extra-axial fluid collec tions are seen. No hypointense signal abnormalities are seen on the GRE images to suggest the presence of blood degr adation products. Scattered nonspecific T2 signal hyperintensity foci in the subcortical and periven tricular white matter compatible with sequelae of minimal chronic microvascular ischemic injury. The brain parenchyma is otherwise normal in signal intensity and morphology with preservation of gra y white differentiation . Age appropriate size of the ventricles and subarachnoid spaces. Mucosal t hickening and inflammatory change in the right nasal cavity. The posterior fossa contents, brainstem, seventh - eighth cranial nerve complexes, pituitary axis, o rbits, paranasal sinuses, and mastoid air cells are unremarkable. Normal flow voids are visible in the proximal intracranial arteries and dural sinuses, indicating pa tency. IMPRESSION: 1. No acute or early subacute ischemic infarction. No intracranial hemorrhage. 2. Minimal microvascular ischemic change and age appropriate volume loss. 3. No other acute intracranial abnormality. RPTAT:AAJJ Physician Rosanne Date Time Electronically viewed and signed by Physician Rosanne on 01/25/2017 00:36 [place]/
[2017-01-25] MEDS: SOD CHLORIDE 0.9% 1,000 ML IV SCH ×2 (03:22→13:30)
[2017-01-25] MEDS: LEVOTHYROXINE 25 MCG TAB PO SCH (06:03)
[2017-01-25 08:03] LABS: ADD SCAN DIFF NO
[2017-01-25 08:13] LABS: BASOPHILS % 0.7 % (0.0-2.0); HEMATOCRIT 34.3 % (37.0-47.0); HEMOGLOBIN 11.6 g/dl (12.0-16.0); LYMPHOCYTES # 1.7 10^3/ul (0.8-2.9); LYMPHOCYTES % 41.1 % (15.0-51.0); MEAN CORPUSCULAR HEMOGLOBIN 30.5 pg (29.0-33.0); MEAN CORPUSCULAR HGB CONC 33.8 g/dl (32.0-37.0); MEAN CORPUSCULAR VOLUME 90.3 fl (82.0-101.0); MEAN PLATELET VOLUME 10.7 fl (7.4-10.4); MONOCYTE # 0.5 10^3/ul (0.3-0.9); MONOCYTES % 10.9 % (0.0-11.0); NEUTROPHILS % 47.1 % (39.0-77.0); PLATELET COUNT 215 10^3/UL (140-415); RED CELL DISTRIBUTION WIDTH 12.1 % (11.5-14.5); WHITE BLOOD COUNT 4.2 10^3/ul (4.8-10.8)
[2017-01-25 08:53] LABS: MAGNESIUM 1.8 mg/dl (1.7-2.5); PHOSPHORUS 2.3 mg/dl (2.5-4.9)
[2017-01-25 08:56] LABS: CALCIUM 8.4 mg/dl (8.4-10.2); CREATININE 0.47 mg/dl (0.44-1.00); POTASSIUM 3.5 mmol/L (3.5-5.1)
[2017-01-25] MEDS: MECLIZINE 25 MG TAB PO SCH ×2 (09:02→12:49)
[2017-01-25] MEDS: ENOXAPARIN 40 MG/0.4 ML SYG SC SCH (10:09)
--- NOTE | 2017-01-25 12:01 | CONS ---
Date/Time of Note Date/Time of Note DATE: 01/25/17 TIME: 12:00 Consult Date/Type/Reason Admit Date/Time Jan 23, 2017 at 14:56 Initial Consult Date 01/24/17 Type of Consultation: Neurology Reason for Consultation vertigo Ordering Provider: ROBERTA DARLING NP Subjective vertigo improved with standing meclizine MRI negative for CVA Objective Vital Signs Date Time Temp Pulse Resp B/P Pulse Ox O2 Delivery O2 Flow Rate FiO2 01/25/17 11:58 98.4 73 18 130/63 98 01/23/17 16:25 Room Air Intake and Output 01/24/17 01/24/17 01/25/17 15:00 23:00 07:00 Intake Total 1200 ml 920 ml Balance 1200 ml 920 ml Exam Constitutional: alert, oriented, well developed Psych: no complaints Neurological: 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 II-XII intact, DTR's symmetric, nl mental status, nl speech, nl strength Results/Medications Result Diagram: 01/25/17 0630 01/25/17 0630 Results 24 hrs Laboratory Tests Test 01/25/17 06:30 White Blood Count 4.2 #L Red Blood Count 3.80 L Hemoglobin 11.6 L Hematocrit 34.3 L Mean Corpuscular Volume 90.3 Mean Corpuscular Hemoglobin 30.5 Mean Corpuscular Hemoglobin Concent 33.8 Red Cell Distribution Width 12.1 Platelet Count 215 Mean Platelet Volume 10.7 H Neutrophils % 47.1 Lymphocytes % 41.1 Monocytes % 10.9 Eosinophils % 0.0 Basophils % 0.7 Nucleated Red Blood Cells % 0.0 Neutrophils # 2.0 Lymphocytes # 1.7 Monocytes # 0.5 Eosinophils # 0.0 Basophils # 0.0 Nucleated Red Blood Cells # 0.0 Sodium Level 143 Potassium Level 3.5 Chloride Level 110 Carbon Dioxide Level 27 Anion Gap 10 Blood Urea Nitrogen 5 L Creatinine 0.47 Glucose Level 82 Calcium Level 8.4 Phosphorus Level 2.3 L Magnesium Level 1.8 Medications Current Medications Sodium Chloride (NS) 1,000 ml @ 100 mls/hr Q10H IV Last administered on t 03:22; Admin Dose 100 MLS/HR; Start 01/23/17 at 15:42 Ondansetron HCl (Zofran Inj) 4 mg Q6H PRN IV NAUSEA AND/OR VOMITING Last administered on 01/23/17 18:11; Admin Dose 4 MG; Start 01/23/17 at 16:00 Acetaminophen (Tylenol Tab) 650 mg Q6H PRN PO PAIN LEVEL 1-3 OR FEVER; Start at 16:00 Acetaminophen/ Hydrocodone Bitart ([place] (5/325)) 1 tab Q6H PRN PO MODERATE PAIN LEVEL 4-6; Start 01/23/17 at 16:00 Morphine Sulfate (morphine) 2 mg Q4H PRN IV SEVERE PAIN LEVEL 7-10 Last administered on 01/23/17 16:10; Admin Dose 2 MG; Start 01/23/17 at 16:00 Enoxaparin Sodium (Lovenox) 40 mg DAILY SC Last administered on 01/25/17 10:09 ; Admin Dose 40 MG; Start 01/24/17 at 09:00 Meclizine HCl (Antivert) 25 mg TID PO Last administered on 01/25/17 09:02; Admin Dose 25 MG; Start 01/24/17 at 13:00 Assessment/Plan Chief Complaint/Hosp Course 61 yo female admitted with nausea vomiting and vertigo. MRI negative for CVA. Recommendations: continue meclizine 25 mg q8h as needed continue IVF hydration DC planning outpatient neurology follow up Problems: ARLIN MARTINEZ MD Jan 25, 2017 12:01
--- NOTE | 2017-01-25 14:33 | PDOCDIS ---
Discharge Instructions DIAGNOSIS Discharge Diagnosis: Benign positional vertigo. CONDITION Patient Condition: Stable HOME CARE INSTRUCTIONS: Diet Instructions: RegularSpecial Diet: regular OTHER ORDERS: Other Orders: 1. Resume home medications. Take meclizine as instructed. 2. Resume activities as tolerated. 3. Follow-up with outpatient neurology. 4. Regular diet. ROBERTA DARLING NP Jan 25, 2017 14:33
[2017-01-25] MEDS ORDERED: MECL-77 PO (14:34)
--- NOTE | 2017-01-25 16:32 | DS ---
DATE OF ADMISSION: 01/23/2017 DATE OF DISCHARGE: 01/25/2017 FINAL DIAGNOSIS: 1. Vertigo, most probably benign paroxysmal positional vertigo. Status post evaluation by neurology. 2. Hypothyroidism. 3. Osteoporosis. CONSULTATIONS: Dr. Tennille Cowan, Neurology. HOSPITAL COURSE: This is a 61-year-old female who presented to the emergency room with chief complaint of nausea and dizziness. The patient also verbalized some light sensitivity and subjective fevers. Provided the patient's history of present illness, a clinical decision was made to admit the patient to inpatient setting to have her further evaluated. The patient was admitted to inpatient telemetry floor. The patient was started on p.r.n. labyrinthine sedatives. The patient was evaluated by neurology. The patient underwent a brain MRI that was negative for any acute intracranial findings. The patient also underwent a carotid Doppler study that was negative for any hemodynamically significant stenosis of the bilateral internal carotid arteries. The patient was started on routine labyrinthine sedatives as per neurology, with improvement in the patient's symptoms. The patient has underlying hypothyroidism. The patient was maintained on Synthroid for the same. The patient's TSH was within normal limits. The patient's symptoms improved significantly. The patient was cleared by neurology to be discharged home. The patient has been able to get up and walk without any significant vertigo. DISPOSITION AND PLAN: The patient will be discharged home today. The patient was instructed to resume home medications and take meclizine as instructed. She was instructed to resume activities as tolerated. She was instructed to follow up with outpatient neurologist. Case management order was put in for insurance approval for outpatient neurology followup. The patient was instructed to follow a regular diet. The patient verbalized understanding of her discharge instructions. CONDITION AT DISCHARGE: Stable. DISCHARGE MEDICATIONS: 1. Meclizine 25 mg p.o. t.i.d. 2. Synthroid 25 mg p.o. before breakfast. 3. Fosamax 70 mg p.o. every 7 days. PERTINENT LABORATORY AND DIAGNOSTIC DATA: 1. Brain CT scan. Negative CT scan of the brain without contrast. There are vascular calcifications in the cavernous and supracavernous portions of the internal carotid arteries and distal right vertebral artery. 2. Carotid Doppler study. No evidence for hemodynamically significant stenosis in the bilateral internal carotid arteries. 3. Brain MRI. No acute or early subacute ischemic infarction. No intracranial hemorrhage. Minimal microvascular ischemic change and age appropriate volume loss. No other acute intracranial abnormality. 4. Latest CBC: WBC 4.0, hemoglobin 11.6, hematocrit 34.3, platelet count 215. 5. Latest BMP: Sodium 143, potassium 3.5, chloride 100, carbon dioxide 20, anion gap 10, BUN 5, creatinine 0.47, glucose 82, calcium 8.4, phosphorus 2.3, magnesium 1.8. 6. Hemoglobin A1c 5.4. 7. Fasting lipid panel: Triglycerides 69, total cholesterol 179, LDL 119. At this time, we would like to thank Dr. Cowan for seeing the patient and providing clinical recommendation. The case and management of this patient was fully discussed with Dr. Payne. Approximately 35 minutes was spent on coordinating the discharge on this patient. ROBERTA PAYNE MD, AM/JUANITA Conf#: [id number] DID#: [id number] MTDSushant
== END 2017-01-25 16:40 | disposition home or self-care (01) ==
LOC: E/R 10:47 → MS4 14:56
PROVIDERS: ADMIT Hospitalist; ATTEND Hospitalist
DX: R42 Dizziness and giddiness (principal); E03.9 Hypothyroidism, unspecified; M81.0 Age-related osteoporosis without current pathological fracture
CPT/HCPCS: 36415; 70450; 70551; 80048; 80053; 80061; 82607; 83036; 83735; 84100; 84443; 85025; 85610; 85730; 93005; 93880; 96360; 96361; 96372; 96374; 96375; J1650; J2270; J2405; J3360; J7030; Z7500; Z7502; Z7610; G0378

== ENCOUNTER 2018-10-27 16:30 | Emergency (ER) | payer OTHER ==
[~2018-10-27] VITALS: Wt 44.5 kg
[~2018-10-27 16:30] MED LIST changes: -ALEN70TA30 PO; +ALEN70TA5 PO; -CIPR500T4 PO
--- NOTE | 2018-10-27 18:11 | ERD ---
ER Documentation Chief Complaint Chief Complaint COUGH, BODYACHES, GEN WEAKNESS, N/V X5 DAYS HPI 63-year-old woman complains of body aches, cough, congestion, sore throat, nausea times 5-6 days. She denies recent travel or antibiotic use, no chest pain, no blood per rectum or melena, no headache or blurry vision, no neck stiffness. ROS All systems reviewed and are negative except as per history of present illness. Medications Home Meds Active Scripts Ibuprofen* (Motrin*) 600 Mg Tab, 600 MG PO Q8 PRN for PAIN AND/OR INFLAMMATION, #30 TAB Prov:MELODIE BROWN MD 10/27/18 Azithromycin* (Zithromax*) 250 Mg Tablet, 250 MG PO .ZPACK DIRECTED, #6 TAB TAKE 500 MG (2 TABS) THE FIRST DAY THEN 250 MG (1 TAB) DAYS 2-5 Prov:MELODIE BROWN MD 10/27/18 Albuterol Sulfate* (Proair HFA*) 8.5 Gm Hfa.aer.ad, 2 PUFF INH Q4 PRN for COUGH, #1 INHALER Prov:MELODIE BROWN MD 10/27/18 Reported Medications Levothyroxine Sodium* (Levothyroxine Sodium*) 125 Mcg Tablet, 62.5 MCG PO BEFORE BREAKFAST, #30 TAB 10/27/18 Ergocalciferol (Vitamin D2) (VITAMIN D2) 50,000 Unit Capsule, 03960 UNIT PO Q W ED, CAP 10/27/18 Alendronate Sodium* (Fosamax*) 70 Mg Tablet, 70 MG PO Q WED, #4 TAB 10/27/18 Discontinued Reported Medications Alendronate Sodium* (Fosamax*) 70 Mg Tablet, 70 MG PO Q7D, #4 TAB EVERY Tuesday11/26/16 Levothyroxine Sodium* (Levoxyl*) 25 Mcg Tablet, 25 MCG PO BEFORE BREAKFAST, #30 TAB 11/26/16 Discontinued Scripts Meclizine Hcl* (Meclizine Hcl*) 25 Mg Tablet, 25 MG PO TID for 14 Days, TAB Prov:ROBERTA DARLING NP 01/25/17 Allergies Allergies: Coded Allergies: No Known Allergy (Unverified , 10/27/18) PMhx/Soc 2. Hypothyroidism. 3. Osteoporosis. Anesthesia Reaction: No Hx Neurological Disorder: No Hx Respiratory Disorders: No Hx Psychiatric Problems: No Hx Miscellaneous Medical Probl: No Hx Alcohol Use: No Hx Substance Use: No Hx Tobacco Use: No Physical Exam Vitals Vital Signs Date Temp Pulse Resp B/P (MAP) Pulse Ox O2 O2 Flow FiO2 Time Delivery Rate 10/27/18 98.4 101 17 116/72 99 Room Air 19:46 (87) 10/27/18 75 14 97 21 18:29 10/27/18 98.4 89 17 138/63 98 16:36 (88) Physical Exam GENERAL: Well-developed, well-nourished, well-hydrated, dyspneic, afebrile HEENT: Positive nasal congestion, dry mucous membranes, pink conjunctive a, no goiter, no jaundice or icterus, extraocular movements intact without pain. No submandibular induration, and no pharyngeal erythema NEURO: Alert and oriented 3, cranial nerves II through XII intact bilaterally, pupils equal round reactive to light, no focal deficits or facial asymmetry, sensation intact distally Strength 5/5 in upper and lower extremities bilaterally CARDIAC: Regular rate and rhythm, no murmurs rubs or gallops LUNGS: Poor breath sounds bilaterally ABDOMEN: Soft nontender, no guarding, no rigidity, no rebound, no psoas sign no obturator sign. Normoactive bowel sounds SKIN: Warm and dry to touch, no abrasions, contusions, or hematomas, no lacerations, no ecchymosis, no target lesions, and without ulcers EXTREMITIES: No clubbing cyanosis or edema, calves are bilaterally symmetrical, no Homans sign, no popliteal cord sign. Distal pulses equal and bilateral PSYCH: Normal affect without agitation or irritability Result Diagram: 10/27/18182910/27/181829 Results 24 hrs Laboratory Tests Test 10/27/18 18:30 White Blood Count 2.8 10^3/ul Red Blood Count 4.45 10^6/ul Hemoglobin 13.1 g/dl Hematocrit 40.5 % Mean Corpuscular Volume 91.0 fl Mean Corpuscular Hemoglobin 29.4 pg Mean Corpuscular Hemoglobin Concent 32.3 g/dl Red Cell Distribution Width 12.2 % Platelet Count 188 10^3/UL Mean Platelet Volume 10.2 fl Immature Granulocytes % 0.400 % Neutrophils % % Segmented Neutrophils % (Manual) 39 % Band Neutrophils % (Manual) 8 % Lymphocytes % % Lymphocytes % (Manual) 38 % Reactive Lymphocytes % (Manual) 3 % Monocytes % % Monocytes % (Manual) 9 % Eosinophils % % Basophils % % Metamyelocytes % (manual) 1 % Myelocytes % (Manual) 2 % Plasma Cells % (manual) 1 % Nucleated Red Blood Cells % 0.0 /100WBC Immature Granulocytes # 0.010 10^3/ul Neutrophils # 10^3/ul Neutrophils # (Manual) 1.1 10^3/ul Band Neutrophils # 0.2 10^3/ul Lymphocytes (Manual) 1.0 10^3/ul Lymphocytes # 10^3/ul Reactive Lymphocytes # 0.0 10^3/ul Monocytes # 10^3/ul Monocytes # (Manual) 0.2 10^3/ul Eosinophils # 10^3/ul Basophils # 10^3/ul Metamyelocytes # 0.0 10^3/ul Myelocytes # 0.0 10^3/ul Plasma Cells # (manual) 0.0 10^3/ul Nucleated Red Blood Cells # 10^3/ul Platelet Estimate NORMAL Sodium Level 137 mmol/L Potassium Level 3.9 mmol/L Chloride Level 98 mmol/L Carbon Dioxide Level 30 mmol/L Anion Gap 9 Blood Urea Nitrogen 13 mg/dl Creatinine 0.49 mg/dl Est Glomerular Filtrat Rate mL/min > 60 mL/min Glucose Level 138 mg/dl Calcium Level 9.3 mg/dl Troponin I < 0.012 ng/ml Current Medications Medications Dose Sig/Yolanda Start Time Status Last (Trade) Ordered Route PRN Stop Time Admin Dose Reason Admin Sodium 1,000 ml @ Q1H STAT 10/27/18 DC 10/27/18 Chloride 1,000 mls/hr IV 18:14 18:40 10/27/18 19:13 Albuterol 10 mg ONCE STAT 10/27/18 DC 10/27/18 (Proventil INH 18:14 18:28 0.5% (Neb)) 10/27/18 18:18 Ipratropium 1 mg ONCE STAT 10/27/18 DC 10/27/18 [place] INH 18:14 18:28 (Atrovent 10/27/18 18:18 0.02% (Neb)) Ketorolac 15 mg ONCE STAT 10/27/18 DC 10/27/18 Tromethamine IV 18:14 18:41 (Toradol) 10/27/18 18:18 Ondansetron 4 mg ONCE STAT 10/27/18 DC 10/27/18 HCl (Zofran IV 18:14 18:40 Inj) 10/27/18 18:18 Procedures/MDM IV line was established patient was placed on shelter monitor rhythm strip revealed a sinus rhythm at 80 bpm with upright P and T waves. Patient was afebrile EKG performed, read by me revealed a normal sinus rhythm at 73 bpm, normal axis, narrow QRS complex, no concerning ST elevations or depressions noted I administered 1 L normal saline IV, Toradol 15 mg IV, Zofran 4 mg IV, albuterol 10 mg via nebulizer, ipratropium 1 mg via nebulizer. Chest X-ray 1V Interpreted by me: Soft Tissue: No acute abnormalities Bones: No acute abnormalities Mediastinum/Cardiac Silhouette/Lungs: No acute abnormalities Influenza AB swabs are negative. CBC and electrolytes were unremarkable, troponin negative. Patient symptoms improved, vital signs including oxygen saturation are within normal limits, and she is pain-free at this time. She is tolerating p.o. and will be discharged to follow-up with PMD. Differential diagnoses considered, included but not limited to acute coronary syndrome, pulmonary embolism, aortic dissection, abdominal aortic aneurysm, sepsis, stroke, meningitis, encephalitis, pneumonia, appendicitis, cholecystitis, bowel obstruction, pyelonephritis, nephrolithiasis, cystitis, as well as metabolic, hematologic, and electrolyte abnormalities. As well as abscess, cellulitis, fractures, and dislocations. Patient feels much better at this time, and vital signs are normal, symptoms have improved. I did give strict instructions to return to the ED if symptoms continue or worsen, patient will otherwise follow-up with primary care physician. Patient understood instructions and agreed to plan. Disclaimer: Inadvertent spelling and grammatical errors are likely due to EHR/dictation software use and do not reflect on the overall quality of patient care. Also, please note that the electronic time recorded on this note does not necessarily reflect the actual time of the patient encounter. Departure Diagnosis: Primary Impression: Bronchitis Additional Impression: Influenza-like symptoms Condition: Good MELODIE BROWN MD Oct 27, 2018 18:11
[2018-10-27] MEDS ORDERED: KETOROLAC 15 MG INJ IV STA (18:14)
[2018-10-27] MEDS ORDERED: IPRATROPIUM (NEB) 0.5 MG/2.5 ML AMP INH STA (18:14)
[2018-10-27] MEDS ORDERED: SOD CHLORIDE 0.9% 1,000 ML IV STA (18:14)
[2018-10-27] MEDS ORDERED: ALBUTEROL 0.5% (NEB) 2.5 MG/0.5 ML AMP INH STA (18:14)
[2018-10-27] MEDS ORDERED: ONDANSETRON 4 MG INJ IV STA (18:14)
[2018-10-27] MEDS ORDERED: ALEN70TA5 PO (18:29)
[2018-10-27] MEDS ORDERED: ERGO500013 PO (18:30)
[2018-10-27] MEDS ORDERED: LEVO125T7 PO (18:31)
[2018-10-27] MEDS ORDERED: AZIT250T PO (19:37)
[2018-10-27] MEDS ORDERED: IBUP-1542 PO (19:37)
[2018-10-27] MEDS ORDERED: ALBU8.5H8 INH (19:37)
[2018-10-27 19:46] VITALS: BP 116/72; PULSE 101; RESP 17
== END 2018-10-27 20:35 | disposition home or self-care (01) ==
LOC: E/R 16:30
DX: J40 Bronchitis, not specified as acute or chronic (principal); R11.2 Nausea with vomiting, unspecified
CPT/HCPCS: 71045; 80048; 84484; 85025; 87400; 94644; J1885; J2405; J7030; Z7610; 93005; 96374; 96375

== ENCOUNTER 2019-01-28 11:42 | Emergency (ER) | payer OTHER ==
[~2019-01-28] VITALS: Ht 144.8 cm; Wt 43.0 kg
[~2019-01-28 11:42] MED LIST changes: +ALBU8.5H8 INH; +AZIT250T PO; +ERGO500013 PO; +IBUP-1542 PO; +LEVO125T7 PO; -LEVO25TA50 PO; -MECL-77 PO
[2019-01-28 11:48] VITALS: BP 124/69; PULSE 99; RESP 16; Ht 144.8 cm; Wt 43.0 kg
[2019-01-28] MEDS ORDERED: FLUT9.9S NASAL (12:15)
[2019-01-28] MEDS ORDERED: AMOX1TAB10 PO (12:15)
[2019-01-28] MEDS ORDERED: IBUP-1561 PO (12:15)
--- NOTE | 2019-01-28 12:28 | ERD ---
ER Documentation Chief Complaint Chief Complaint INTERMITTENT FEVER WITH SINUS PRESSURE & NASAL CONGESTION X WEEKS HPI 63-year-old female with chronic sinusitis presents with complaint of sinus pressure, nasal congestion, and intermittent fevers Since last Tuesday. States that she gets recurrent sinus infections and it usually accompanied by fever. States that she has a runny nose as well as well as some discharge from the left eye. Denies sudden onset, worse headache of life, fever, neck stiffness, rash, headache getting worse with change in position, headache initiated by exertion, DUNN worse in the morning, DUNN waking up patient at night, new neurological deficits, numbness, weakness, vision problems, tenderness to palpation over temporal area, history of trauma, or possibility of CO2 poisoning. ROS All systems reviewed and are negative except as per history of present illness. Medications Home Meds Active Scripts Polymyxin B Sulfate-TMP* (Polymyxin B-TMP Eye Drops*) 10 Ml Drops, 1 DROP LEFT EYE QID for 7 Days, EA Prov:RICCI CHRISTINE 01/28/19 Amoxicillin/Potassium Clav (Amox-Clav 875-125 mg Tablet) 875-125 mg Tab, 1 TAB PO BID for 7 Days, #14 TAB Prov:RICCI CHRISTINE 01/28/19 Ibuprofen* (Motrin*) 400 Mg Tab, 400 MG PO Q6, #30 TAB Prov:RICCI CHRISTINE 01/28/19 Fluticasone Propionate (Flonase Allergy Relief) 9.9 Ml Maceo.susp, 2 SPRAY NASAL DAILY, #1 BOTTLE TO EACH NOSTRIL Prov:RICCI CHRISTINE 01/28/19 Ibuprofen* (Motrin*) 600 Mg Tab, 600 MG PO Q8 PRN for PAIN AND/OR INFLAMMATION, #30 TAB Prov:MELODIE BROWN MD 10/27/18 Azithromycin* (Zithromax*) 250 Mg Tablet, 250 MG PO .ZPACK DIRECTED, #6 TAB TAKE 500 MG (2 TABS) THE FIRST DAY THEN 250 MG (1 TAB) DAYS 2-5 Prov:MELODIE BROWN MD 10/27/18 Albuterol Sulfate* (Proair HFA*) 8.5 Gm Hfa.aer.ad, 2 PUFF INH Q4 PRN for COUGH, #1 INHALER Prov:MELODIE BROWN MD 10/27/18 Reported Medications Levothyroxine Sodium* (Levothyroxine Sodium*) 125 Mcg Tablet, 62.5 MCG PO BEFORE BREAKFAST, #30 TAB 10/27/18 Ergocalciferol (Vitamin D2) (VITAMIN D2) 50,000 Unit Capsule, 37422 UNIT PO Q WED, CAP 10/27/18 Alendronate Sodium* (Fosamax*) 70 Mg Tablet, 70 MG PO Q WED, #4 TAB 10/27/18 Allergies Allergies: Coded Allergies: No Known Allergy (Unverified , 10/27/18) PMhx/Soc Anesthesia Reaction: No Hx Neurological Disorder: No Hx Respiratory Disorders: No Hx Psychiatric Problems: No Hx Miscellaneous Medical Probl: No Hx Alcohol Use: No Hx Substance Use: No Hx Tobacco Use: No FmHx Family History: No diabetes, No coronary disease, No other Physical Exam Vitals Vital Signs Date Temp Pulse Resp B/P (MAP) Pulse Ox O2 O2 Flow FiO2 Time Delivery Rate 01/28/19 100.5 12:24 01/28/19 100.5 99 16 124/69 97 11:48 (87) Physical Exam Const: No acute distress Head: Atraumatic Eyes: Normal Conjunctiva ENT: Normal External Ears, Nose and Mouth. Injected conjunctive a in the left eye with clear discharge. Sinus tenderness palpation left frontal and maxillary sinuses Neck: Full range of motion. No meningismus. Resp: Clear to auscultation bilaterally Cardio: Regular rate and rhythm, no murmurs Abd: Soft, non tender, non distended. Normal bowel sounds Skin: No petechiae or rashes Back: No midline or flank tenderness Ext: No cyanosis, or edema Neur: Awake and alert Psych: Normal Mood and Affect Neuro: M/S: Alert and oriented Face: EOMI, face and pharynx with normal sensation and function Motor: Normal strength throughout Sensation: Normal sensation throughout Speech: Normal Cerebel: Normal coordination Normal gait Normal finger to nose DTR: 2+ and symmetric upper/lower extremities Results 24 hrs Current Medications Medications Dose Sig/Yolanda Start Time Status Last (Trade) Ordered Route PRN Stop Time Admin Dose Reason Admin Ibuprofen 400 mg ONCE ONCE 01/28/19 DC 01/28/19 (Motrin) PO 12:30 12:24 01/28/19 12:31 Polymyxin/ 1 drop ONCE ONCE 01/28/19 DC Trimethoprim LEFT EYE 12:30 Sulfate 01/28/19 12:31 (Polytrim Oph) Procedures/MDM MDM: Patient has a history of sinus infections and this presentations consistent with her previous sinus infections. Patient's neuro exam was within normal limits therefore I have low suspicion for any time of intracranial pathology. I have low suspicion for intracranial hemorrhage, elevated intracranial pressure, intracranial mass, aneurysm, meningitis, malignant hypertension, giant cell arteritis, carotid dissection, intracranial abscess, cerebral venous thrombosis, CO2 poisoning, or other emergent causes of headache based on patients history and exam. Patient discharged with Rx for Augmentin, ibuprofen, and Flonase. Patient advised to follow-up with ENT. Addition, I have low suspicion bacterial conjunctivitis, corneal abrasion, corneal ulcer, retained eye foreign body, glaucoma, periorbital cellulitis, orbital cellulitis, hordeolum, dacrocystitis, globe rupture. Patient given Rx for Polytrim prophylaxis. At this time, patient is stable for discharge and outpatient management. I have instructed the patient to follow-up with his/her primary care physician in 1-2 days. I have discussed with the patient the possibility of needing to see a spec ialist for further workup and imaging studies if symptoms persist. I have instructed the patient to promptly return to the ER for any new or worsening symptoms including but not limited to increased pain, fever, nausea, vomiting, weakness or LOC. The patient and/or family expressed understanding of and agreement with this plan. All questions were answered. Home care instructions we re provided. DISCLAIMER: Inadvertent spelling and grammatical errors are likely due to EHR/dictation software use and do not reflect on the overall quality of patient care. Also, please note that the electronic time recorded on this note does not necessarily reflect the actual time of the patient encounter. Departure Diagnosis: Primary Impression: Sinusitis Sinusitis location: unspecified location Chronicity: unspecified Qualified Codes: J32.9 - Chronic sinusitis, unspecified Additional Impression: Conjunctivitis Conjunctivitis type: acute Acute conjunctivitis type: unspecified Laterality: left Qualified Codes: H10.32 - Unspecified acute c onjunctivitis, left eye Condition: Stable Patient Instructions: Sinus Headaches, Causes of Sinusitis, Preventing Sinusitis, Self-Care for Sinusitis, Treating Chronic Sinusitis, Understanding Sinus Problems, Sinusitis, Abx Tx Referrals: JOSEY HERNANDEZ MD, STEPHEN H MD Additional Instructions: FOLLOW UP WITH YOUR PRIMARY CARE PHYSICIAN TOMORROW.Return to this facility if you are not improving as expected. RICCI CHRISTINE Jan 28, 2019 12:27
[2019-01-28] MEDS ORDERED: POLYMYXIN/TRIMETHOPRIM 10 ML OPH LEFT EYE ONE (12:30)
[2019-01-28] MEDS ORDERED: IBUPROFEN 200 MG TAB PO ONE (12:30)
[2019-01-28] MEDS ORDERED: POLY10DR19 LEFT EYE (12:30)
== END 2019-01-28 13:15 | disposition home or self-care (01) ==
LOC: FTE 11:42
DX: J32.9 Chronic sinusitis, unspecified (principal); H10.32 Unspecified acute conjunctivitis, left eye
CPT/HCPCS: Z7502; Z7610; 99283